=== PATIENT | male | born 1960 | race Caucasian/White ===

== ENCOUNTER 2024-05-01 09:18 | Emergency (ER) | payer SELFPAY ==
[2024-05-01 09:19] VITALS: PULSE 85; RESP 19; TEMP 36.2; O2SAT 97; BMI 24.8
[2024-05-01 09:24] VITALS: BP 174/122
--- NOTE | 2024-05-01 10:00 | EDS_ITS ---
HPI History of Present Illness Chief Complaint: Upper Extremity Injury Informant: patient Narrative Narrative: Patient presented with weakness in his left hand. It is mostly fingers 4 and 5. He denies numbness. He is right-hand dominant. He denies any injury. He first noticed this somewhere in the last 6 or 7 hours. He woke up about 3 AM, his last known normal, and everything was working fine. He went to the bathroom, and when he got back into bed he started using his ED-reader, and then noticed suddenly that the hand was not working properly. He has had no changes since then which is why presents to the ED. He denies any weakness or numbness anywhere else including his face and leg. He takes no medications has no medical problems and has never had a stroke before. He lives in [place] and is traveling here on business right now. He arrived here a couple days ago. No jewelry jobber was used, this patient is fluent in [place]. [facility] Medical History (Updated 05/01/24 @ 14:[address] Negro Frey MD) Peripheral neuropathy Medical History no medical history no medical history Allergy/AdvReac Type Severity Reaction Status Date / Time No Known Allergies Allergy Verified 05/01/24 09:24 Surgical History no surgical history Social History Smoking Status: Never smoker ROS ROS ED Constitutional Constitutional ED: Denies chills or fever(s) Eyes Eyes: Denies change in vision or diplopia ENT ENT ED: Denies rhinorrhea or sore throat Cardiovascular Cardiovascular: Denies chest pain or palpitations Respiratory/Chest Respiratory/Chest: Denies cough or dyspnea Gastrointestinal Gastrointestinal: Denies abdominal pain, diarrhea, nausea or vomiting Genitourinary Genitourinary ED: Denies dysuria or hematuria Musculoskeletal Musculoskeletal: Denies back pain or neck pain Integumentary Denies abscess or rash Neurologic Neurologic: Reports weakness; Denies headache(s) or paresthesias Psychiatric Psychiatric: Denies anxiety or suicidal thoughts EXAM Physical Exam Const Vital Signs: 05/01/24 09:19 05/01/24 09:24 Temperature 97.1 F L Temperature Source Temporal Pulse Rate 85 Respiratory Rate 19 H Blood Pressure 174/122 H Blood Pressure Mean 139 Pulse Ox 97 Oxygen Delivery Method Room Air Positive well nourished and well developed General Appearance ED: well developed and NAD HEENT Reports moist mucous membranes normocephalic and atraumatic Eyes PERRL and EOMs intact bilaterally Neck full ROM and supple Resp normal respiratory effort and clear to auscultation bilaterally Cardio regular rate, regular rhythm and no murmurs GI non-tender and non-distended Auscultation: normoactive bowel sounds Palpation: soft Back/Spine no CVA tenderness General Back: other FROM Extremity normal to inspection Extremity Narrative: See below for findings regarding the left hand neurologically. Negative Tinel's at the left elbow ulnar tunnel and negative Tinel's at the median nerve volar wrist tunnel. Full range of motion all joints without pain or dysfunction or erythema/rash. General Extremety ED: Negative for edema, pulses abnormal or tenderness General Extremity: Negative for edema or pulses abnormal Neuro oriented x3, CN's II-XII intact bilaterally and no sensory deficits noted Neuro Narrative: Patient has clawing of the left fourth and fifth fingers. He has limited ability to spread those fingers against resistance, and limited ability to extend and flex them against resistance. All tendon function is intact. Normal sensation in this distribution. 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 He can extend at the wrist without any difficulty, arguing against a radial nerve palsy. He does not have the sensation loss in the ulnar nerve distribution to suggest a classic ulnar nerve palsy; the cause of all of this is unknown. He has no neck pain, he has no other neurologic symptoms to suggest a stroke, but given that his blood pressure is 170/120, I obtained a CT in addition to basic labs. I reviewed the images as well as the report which I agree with, it is negative for any acute. There was some incidental opacification of the ethmoid sinuses noted but I do not think that has anything to do with this and he does not have symptoms from it so I do not think it needs to be emergently addressed. I spoke with Dr. Cramer with orthopedics, he states if the patient is going to be here for a while and wants to follow-up with him as an outpatient, he could assist but basically agrees with ruling out emergent causes here. I discussed with [facility] stroke neurology, they agreed with me that this was very unlikely to be central/stroke in etiology, but in addition to the head CT that recommend emergent vessel imaging of the head and neck in order to rule out likely vascular cause. This was done, I reviewed the images and the report which I agree with, it is negative for any acute or critical vascular disease/thrombosis. Given all of this, and the patient's condition unchanged he is stable for discharge home, he is going to be here for the next 4 days before going back to [place]. He prefers to wait until he gets home to follow-up which I understand. I advised making sure he does so as soon as possible so that he can get his blood pressure rechecked as well as further testing if his neuropathy persists. He is agreeable to that plan. Lab Data Lab results narrative: Laboratory Tests 05/01/24 Range/Units 10:05 WBC 6.0 (4.4-11.0) K/mm3 RBC 5.13 (4.6-6.2) M/mm3 Hgb 14.7 (13.0-16.5) g/dL Hct 45.1 (40-54) % MCV 87.9 (80-94) fL MCH 28.7 (27.0-32.0) pg MCHC 32.6 (32-36) g/dL RDW Std Deviation 41.7 (35.1-43.9) fl RDW Coeff of Aston 12.9 (11.6-14.6) % Plt Count 151 (150-450) K/mm3 MPV 11.2 (6.2-12.0) fl Immature Gran % (Auto) 0.500 (0.0-0.9) % Neut % (Auto) 65.6 (47-70) % Lymph % (Auto) 14.0 L (19-41) % [place] % (Auto) 18.6 H (0-10) % Eos % (Auto) 0.5 (0-5) % Baso % (Auto) 0.8 (0-1) % Absolute Neuts (auto) 3.9 (2.0-7.7) X10^3/uL Absolute Lymphs (auto) 0.84 (0.83-4.51) X10^3/uL Nucleated RBC % 0 (0-5) % Sodium 141 (136-145) mmol/L Potassium 4.1 (3.5-5.1) mmol/L Chloride 107 (98-107) mmol/L Carbon Dioxide 27.0 (21.0-32.0) mmol/L Anion Gap 7 (5-15) BUN 16 (7-18) mg/dL Creatinine 0.97 (0.70-1.30) mg/dL Estim Creat Clear Calc 96.94 ml/min Est GFR (MDRD) Af Amer 101 (>60) mL/min Est GFR (MDRD) Non-Af 83 (>60) mL/min BUN/Creatinine Ratio 16.5 (10-20) RATIO Glucose 99 (74-106) mg/dL Calcium 9.0 (8.5-10.1) mg/dL Radiography Diagnostic Testing: Clinical Impression(s) from Imaging Studies Brain CT 05/01/24 10:30 IMPRESSION: Chronic involutional changes of the brain. Partial opacification of the ethmoid sinuses. Electronically Signed: Prasad Craft MD at 10:46 EDT , Head/Neck CTA 05/01/24 12:07 IMPRESSION: Minimal plaque formation at the origin of the right and left internal carotid arteries. 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
[2024-05-01 10:28] LABS: Absolute Lymphocyte Count 0.84 X10^3/uL (0.83-4.51); Absolute Neutrophil Count 3.9 X10^3/uL (2.0-7.7); Basophil# 0.05 X10^3/uL; Basophil% 0.8 % (0-1); Eosinophil# 0.03 X10^3/uL; Eosinophils% 0.5 % (0-5); Hematocrit 45.1 % (40-54); Hemoglobin 14.7 g/dL (13.0-16.5); Lymphocyte # 0.84 X10^3/ul (0.83-4.51); Mean Corp Hgb Conc 32.6 g/dL (32-36); Mean Corpuscular Hgb 28.7 pg (27.0-32.0); Mean Corpuscular Volume 87.9 fL (80-94); Mean Platelet Vol. 11.2 fl (6.2-12.0); Monocyte# 1.11 X10^3/uL; Monocyte% 18.6 % (0-10); NRBC Flagged by Analyzer 0 % (0-5); Neutrophil # 3.92 X10^3/uL (2.7-7.7); Neutrophil % 65.6 % (47-70); Platelet Count 151 K/mm3 (150-450); RBC Distribution Width CV 12.9 % (11.6-14.6); RBC Distribution Width SD 41.7 fl (35.1-43.9); Red Blood Count 5.13 M/mm3 (4.6-6.2)
--- NOTE | 2024-05-01 10:30 | CT_ITS ---
STUDY: CT BRAIN WITHOUT CONTRAST REASON FOR EXAM: Male, 63 years old. Left arm weakness RADIATION DOSAGE (If Supplied By Facility): CTDIvol = ( 44.99 ) mGy, DLP = ( 880.47 ) mGycm TECHNIQUE: Transaxial CT imaging of the brain was performed without administration of intravenous contrast material. Individualized dose optimization techniques were used for this CT. COMPARISON: No relevant priors. FINDINGS: Normal soft tissue structures. Normal calvarium. There is mild cerebral atrophy with widening of the extra-axial spaces and ventricular dilatation. Normal white matter tracts of the cerebral hemispheres. Normal basal ganglia and thalami. Normal brainstem. Normal cerebellum. There is no intracranial hemorrhage. There are no findings of an acute ischemic infarction. Atherosclerotic calcification of the cavernous portions of the internal carotid arteries bilaterally. Partial opacification of the ethmoid sinuses bilaterally. Nasal septal deviation towards the right side of the midline. CT/Brain/Head without Contrast IMPRESSION: Chronic involutional changes of the brain. Partial opacification of the ethmoid sinuses. Electronically Signed: Prasad Craft MD at 10:46 EDT ,
[2024-05-01 10:38] LABS: Anion Gap 7 (5-15); BUN 16 mg/dL (7-18); BUN/Creat Ratio 16.5 RATIO (10-20); Chloride 107 mmol/L (98-107); Creatinine, Serum 0.97 mg/dL (0.70-1.30); EST Glomerular Filtration Rate 83 mL/min (>60); Est Glom Filt Rate - Afr Amer 101 mL/min (>60); Estimated Creatinine Clearance 96.94 ml/min; Glucose 99 mg/dL (74-106); Potassium 4.1 mmol/L (3.5-5.1); Sodium Level 141 mmol/L (136-145)
--- NOTE | 2024-05-01 11:39 | CONS.ORTHO ---
HPI Consult Data Date of Consult: 05/01/24 HPI Narrative HPI Narrative: JACINTA SANTOS, is a 63 M who presents called by Dr. Vega to assess for acute diminished sensation along the ulnar nerve distribution. No prior viral illnesses. Already did a stroke workup to rule out brain causes of this. Patient has not had symptoms before. They are traveling from [place]. [facility] Medical History (Updated 05/01/24 @ 11:40 by John Cramer MD) Peripheral neuropathy Medical History no medical history Allergy/AdvReac Type Severity Reaction Status Date / Time No Known Allergies Allergy Verified 05/01/24 09:24 Surgical History no surgical history Social History Smoking Status: Never smoker Vital Signs Vital Signs Vital Signs: 05/01/24 09:19 05/01/24 09:24 Temperature 97.1 F L Temperature Source Temporal Pulse Rate 85 Respiratory Rate 19 H Blood Pressure 174/122 H Blood Pressure Mean 139 Pulse Ox 97 Oxygen Delivery Method Room Air Weight Weight: 204 lb Body Mass Index (BMI) 24.8 Lab / Micro Data 05/01/24 10:05 05/01/24 10:05 Labs: Laboratory Results - last 24 hr 05/01/24 10:05: WBC 6.0, RBC 5.13, Hgb 14.7, Hct 45.1, MCV 87.9, MCH 28.7, MCHC 32.6, RDW Std Deviation 41.7, RDW Coeff of Aston 12.9, Plt Count 151, MPV 11.2, Immature Gran % (Auto) 0.500, Neut % (Auto) 65.6, Lymph % (Auto) 14.0 L, [place] % (Auto) 18.6 H, Eos % (Auto) 0.5, Baso % (Auto) 0.8, Absolute Neuts (auto) 3.9, Absolute Lymphs (auto) 0.84, Nucleated RBC % 0, Sodium 141, Potassium 4.1, Chloride 107, Carbon Dioxide 27.0, Anion Gap 7, BUN 16, Creatinine 0.97, Estim Creat Clear Calc 96.94, Est GFR (MDRD) Af Amer 101, Est GFR (MDRD) Non-Af 83, BUN/Creatinine Ratio 16.5, Glucose 99, Calcium 9.0 Imaging Radiology Impression Brain CT 05/01/24 10:30 IMPRESSION: Chronic involutional changes of the brain. Partial opacification of the ethmoid sinuses. Electronically Signed: Prasad Craft MD at 10:46 EDT , Assessment & Plan Assessment/Plan (1) Peripheral neuropathy: PLAN: 63-year-old man with peripheral neuropathy. This can be coming from many different sources ulnar nerve at the elbow at the wrist Guyon's canal could be postviral nerve sheath tumor direct trauma so-called Wednesday night palsy peripheral neuropathies entrapment neuropathy cervical radiculopathy or many other nonemergent causes. I will leave this up to the emergency department to rule out emergent causes of this type of problem it sounds like there is already been a stroke workup and the ED physician stated that they will contact as well neurology but I can see the patient as an outpatient if there are no emergent causes of this problem.
[2024-05-01 12:00] VITALS: BP 171/117; PULSE 79; RESP 16; O2SAT 97
--- NOTE | 2024-05-01 12:07 | CT_ITS ---
STUDY: CTA HEAD AND NECK WITH CONTRAST REASON FOR EXAM: Male, 63 years old. CHRISTI yu RADIATION DOSAGE (If Supplied By Facility): CTDIvol = ( 23.81 ) mGy, DLP = ( 774.95 ) mGycm TECHNIQUE: CT angiography was performed with a multi-detector CT scanner. Data acquisition was obtained from the skull base through the vertex following intravenous administration of IV 100mL [id number]. MIP images were reconstructed from the axial data set. Post-processing of the angiographic images was performed, with multiplanar reformation and 3D reconstruction. Individualized dose optimization techniques were used for this CT. COMPARISON: No relevant priors. FINDINGS: Normal bilateral petrous carotid arteries. Normal right cavernous carotid artery with a normal supraclinoid bifurcation. Normal left cavernous carotid artery with a normal supraclinoid bifurcation. Normal right A1 segments of the anterior cerebral artery. Normal left A1 segments of the anterior cerebral artery. Normal intact anterior communicating artery (ACOM). Normal bilateral A2 segments of the anterior cerebral arteries. Normal right M1 and M2 segments of the middle cerebral arteries, with a normal M1 bifurcation. Normal left M1 and M2 segments of the middle cerebral arteries, with a normal M1 bifurcation. Normal right posterior communicating artery (PCOM). Normal left posterior communicating artery (PCOM). Normal bilateral vertebral arteries. Normal basilar artery with a normal basilar bifurcation. The visualized bilateral superior cerebellar (SCA) arteries are normal. Normal bilateral P1, P2 and visualized P3 segments of the posterior cerebral arteries. There is no demonstrated aneurysm of the [place]. There is a 6.6 mm calcified nodule in the right lobe of the thyroid. Nasal septal deviation towards the right side of midline. Partial opacification of the ethmoid sinuses bilaterally. AORTIC ARCH: There is atherosclerotic calcific plaque formation of the aortic arch and great vessels arising from the aortic arch, without a hemodynamically significant stenosis. There is a normal origin of the brachiocephalic, left common carotid, and left subclavian arteries. RIGHT CAROTID ARTERIES: Normal right common carotid artery (CCA). Normal right common carotid bulb. There is minimal atherosclerotic plaque formation of the origin of the right internal carotid artery with less than 50% cross sectional diameter stenosis. Normal visualized cervical portion of the right internal carotid artery. Normal origin of the right external carotid artery (ECA). LEFT CAROTID ARTERIES: Normal left common carotid artery (CCA). Normal left common carotid bulb. There is minimal atherosclerotic plaque formation of the origin of the left internal carotid artery with less than 50% cross sectional diameter stenosis. Normal visualized cervical portion of the left internal carotid artery. Normal origin of the left external carotid artery (ECA). VERTEBRAL ARTERIES: Normal bilateral vertebral arteries. CT/CTA Head AND Neck W/ Contrast IMPRESSION: Minimal plaque formation at the origin of the right and left internal carotid arteries. Electronically Signed: Prasad Craft MD at 13:32 EDT ,
[2024-05-01 14:10] VITALS: BP 161/118; PULSE 77; RESP 16; O2SAT 96
[2024-05-01 14:40] VITALS: BP 167/116; PULSE 83; RESP 16; TEMP 36.8; O2SAT 97
== END 2024-05-01 14:54 | disposition home or self-care (01) ==
PROVIDERS: Emergency Provider Emergency Medicine; Visit Provider Emergency Medicine
DX: G56.22 Lesion of ulnar nerve, left upper limb (principal); R29.898 Other symptoms and signs involving the musculoskeletal system; I10 Essential (primary) hypertension; G62.9 Polyneuropathy, unspecified
CPT/HCPCS: 70450; 70496; 70498; 80048; 85025; 99283; Q9967; A4216